=== PATIENT | male | born 1955 | race Caucasian/White ===

== ENCOUNTER 2022-07-30 14:24 | Outpatient (CLI) | payer MEDICARE, SELFPAY ==
[2022-07-30 13:52] LABS: Albumin* 4.1 g/dL (3.3-5.0); Chloride* 104 mmol/L (96-114)
[2022-07-30 13:53] LABS: Potassium* 4.5 mmol/L (3.6-5.1); Sodium* 138 mmol/L (135-149)
[2022-07-30 13:55] LABS: Alanine Aminotransferase* 18 U/L (4-50); Alkaline Phosphatase* 83 U/L (40-150); Aspartate Amino Transferase* 21 U/L (12-35); Bilirubin Total* 0.6 mg/dL (0.1-1.5); Blood Urea Nitrogen* 20 mg/dL (7-30); Carbon Dioxide* 26 mmol/L (20-32); Cholesterol* 125 mg/dL (90-199); Creatinine* 1.1 mg/dL (0.5-1.5); Estimated Glomerular Filt Rate 73 ml/min; Glucose* 130 mg/dL (60-115); Total Protein* 6.5 g/dL (6.0-8.3); Triglycerides* 88 mg/dL (40-149)
[2022-07-30 13:56] LABS: Calcium* 9.3 mg/dL (8.4-10.6); HDL Cholesterol* 52 mg/dL (>=40); LDL Cholesterol Calculated 55 mg/dL (<100)
== END 2022-07-30 14:25 | disposition home or self-care (01) ==
PROVIDERS: PCP Family Medicine; Visit Provider Family Medicine
DX: Z00.00 Encounter for general adult medical examination without abnormal findings (principal); E11.9 Type 2 diabetes mellitus without complications; E78.5 Hyperlipidemia, unspecified; R53.83 Other fatigue; Z12.5 Encounter for screening for malignant neoplasm of prostate
CPT/HCPCS: 80053; 80061; 84153

== ENCOUNTER 2023-09-18 08:59 | Outpatient (CLI) | payer MEDICARE, SELFPAY | END 2023-09-18 09:00 | disposition home or self-care (01) | LOC: NFLDREF 23:49 | PROVIDERS: PCP Family Medicine; Referring Provider Family Medicine; Visit Provider Family Medicine | DX: E11.9 Type 2 diabetes mellitus without complications (principal) | CPT/HCPCS: 80053; 82043; 82570 ==

== ENCOUNTER 2023-09-22 12:58 | Outpatient (CLI) | payer MEDICARE, SELFPAY | END 2023-09-22 12:59 | disposition home or self-care (01) | PROVIDERS: PCP Family Medicine; Visit Provider Family Medicine | DX: Z12.5 Encounter for screening for malignant neoplasm of prostate (principal) | CPT/HCPCS: 80061; 84153 ==

== ENCOUNTER 2023-09-24 09:03 | Outpatient (CLI) | payer MEDICARE, SELFPAY | END 2023-09-24 09:04 | disposition home or self-care (01) | LOC: NFLDREF 09-25 09:05 | PROVIDERS: PCP Family Medicine; Referring Provider Family Medicine; Visit Provider Family Medicine | DX: Z00.01 Encounter for general adult medical examination with abnormal findings (principal); E78.5 Hyperlipidemia, unspecified; I10 Essential (primary) hypertension; E11.42 Type 2 diabetes mellitus with diabetic polyneuropathy; E87.1 Hypo-osmolality and hyponatremia; Z12.5 Encounter for screening for malignant neoplasm of prostate; N40.0 Benign prostatic hyperplasia without lower urinary tract symptoms | CPT/HCPCS: 80061 ==

== ENCOUNTER 2024-09-24 09:13 | Outpatient (CLI) | payer MEDICARE, SELFPAY | END 2024-09-24 09:14 | disposition home or self-care (01) | LOC: NFLDREF 09-28 08:18 | PROVIDERS: PCP Family Medicine; Referring Provider Family Medicine; Visit Provider Family Medicine | DX: E78.5 Hyperlipidemia, unspecified (principal); I10 Essential (primary) hypertension; E11.42 Type 2 diabetes mellitus with diabetic polyneuropathy; E11.9 Type 2 diabetes mellitus without complications; Z79.84 Long term (current) use of oral hypoglycemic drugs; Z12.5 Encounter for screening for malignant neoplasm of prostate | CPT/HCPCS: 80053; 80061; 82043; 82570; G0103 ==